=== PATIENT | female | born 1935 | race Caucasian/White ===

== ENCOUNTER 2023-12-10 18:00 | Emergency (ER) | payer MEDICARE, SELFPAY ==
[2023-12-10 18:05] VITALS: BP 176/79
--- NOTE | 2023-12-10 20:55 | ED.GENMED ---
History of Present Illness
General
Chief Complaint: Skin Surface Trauma
Source: family
Exam Limitations: dementia
Time Seen by Provider: 12/10/23 19:52
Nursing documentation reviewed up to this point in time: agreed with
Travel History
Have you had any contact with someone who has COVID-19?: No
Do you have any symptoms of coronavirus? Fever > 100 degrees, chills, cough, shortness of breath, sore throat, loss of taste or smell, muscle aches, or headache?: No
History of Present Illness
History of Present Illness:
pt is a 88 y/o F with h/o dementia, HTN, aortic stenosis
from [place]
witnessed fall when she was walking without walker and went to turn around and her feet got tangled up and she fell forward hitting her face o nthe ground
no LOC, vomitng
no change in mental status
but pt's upper dentures broke and she ahs a laceration in her mouth and through to above her upper lip
had a nosebleed that is controlled
no other known complaints
brought here by daughter
tetanus unknown.
Past History
Past History
ED Past Medical History: Asthma, Hypercholesterolemia, Hypothyroidism, Psychiatric (anxiety/depression), Other (Pancreatic lesion) and Other
ED Past Surgical History: Gynecological (Hysterectomy) and Orthopedic (Left total knee)
Patient has exhibited threatening behavior?: No
PSI?: No
Social History
Tobacco: Former smoker
Alcohol: None
Drug: None
Personal:
Living: assisted living
Family History
Family History: Other (Mother with stroke father with angina and Alzheimer's)
Review of Systems
Review of Systems
Allergies reviewed?: Yes
All Other Systems: Not applicable
Phy Exam
Physical Exam
Physical Exam:
GENERAL: Alert , in no apparent distress
HEAD: NCAT
FACE:skin above upper lip laceration 1 cm
NECK: no midline tenderness, active ROM intact, no paraspinal muscle tenderness;
EYE: pupils equal and reactive, EOMs intact.
ENT: o/p clr, mmm. no hemotympanum
no septal hematoma
upper gingiva contusion no obvious laceration
upper lip laceration buccal mucosa, small 1 cm
no lower lip laceration
lower dentures mobile, removed;
CARDIAC: Regular rate and rhythm, no edema
LUNGS: Clear breath sounds bilaterally, no acute respiratory distress, no wheezes/rales/rhonchi
ABDOMEN: Soft, without focal tenderness, no r/g, no cvat
NEUROLOGICAL: Alert and oriented, no focal neuro deficits, CN intact, 5/5 strength, sensation intact
SKIN: Warm and dry, bruised on pt's face and right knee
MUSCULOSKELETAL: No edema, well perfused.
full rom of hips and knees.
PSYCH: Normal and appropriate interaction.
Course
Orders/Labs/Results
Orders:
Orders
12/10/23 18:54
CT Facial Bones W/o Iv Contras Urgent
Comment:
Reason For Exam: s/p fall onto face
CT Head W/o Iv Contrast Urgent
Comment:
Reason For Exam: s/p fall onto face
12/10/23 20:54
Tetanus/Diphth/Acelpertussis [Adacel] 0.5 ml IM .ONCE ONE
Vital Signs
Initial and Last Documented VS:
Initial Vital Signs
Temp Pulse Resp BP Pulse Ox
98.4 F 81 16 176/79 98
12/10/23 18:05 12/10/23 18:05 12/10/23 18:05 12/10/23 18:05 12/10/23 18:05
Last Documented Vital Signs
Temp Pulse Resp BP Pulse Ox
98.4 F 85 16 162/81 99
12/10/23 18:05 12/10/23 21:41 12/10/23 18:05 12/10/23 21:41 12/10/23 21:41
Procedures
Laceration Closure
Face:
Status of Wound: clean
Size of Wound in cm: 1
Description of Wound Edges: ragged
Preparation: cleaned with saline
Anesthesia: 1% Lidocaine with epi
Revision/Debridement: minor revision
Wound exploration: explored to base- no FB
Type of Closure: single layer closure
Skin Closure Material: 6-0 nylon
Number of sutures: 4
MDM/Problems Addressed
Differential Diagnosis Includes:
facial fracture, head injruy, facial laceration, contusion
MDM/Problems Addressed:
88-year-old female with a history of dementia from custodial presents after witnessed fall forward onto her face today. She had no loss of consciousness, she is not anticoagulated. She has a facial laceration above her lip from her dentures
cutting her inside her mouth through to her outside face. Patient has dentures in the upper area are no longer in because they are fractured. She has intact lower dentures which were removed by me to evaluate her mouth. Patient has some facial
swelling below her nose above her lip but is not tender. She does have a contusion to her gingiva in the upper left side and an irregular shaped nongaping laceration measuring about 1 cm in her mouth and the buccal mucosa, the outer lip lacerations
about 1 cm, ragged and required sutures. It was irrigated and anesthetized and sutured with four 6-0 nylon sutures. Patient had no rebleeding. Her head and facial bone CT were negative for injuries. Patient will be discharged with her daughter
who will take her home, tetanus was updated
*Critical Care Note
Total Time (30-74mins, 75-104mins- exclusive of procedures): Not Applicable
ED Attending Note
-
Portions of this chart may have been created with voice recognition software.� Occasional wrong word or��sound alike� substitutions may have occurred due to the inherent limitations of voice recognition software.
Discharge Plan
Departure
Patient Disposition: Home (Routine Discharge)
Date of Disposition: 12/10/23
Time of Disposition: 21:38
Patient with high blood pressure during this ER visit?: Yes
Condition: Fair
Covid-19: Not Applicable
Discharge Problem:
Laceration of lip, Fall, Contusion of face
Instructions: Laceration Repair With Stitches (DC), Mouth and dental injuries in adults, BLOOD PRESSURE
Prescriptions:
No Action
clonazepam 0.5 MG tablet
0.5 mg PO BID
citalopram 20 MG tablet
20 mg PO DAILY
multivitamin with folic acid [Tab-A-Mellissa] 1 TABLET tablet
1 tab PO DAILY
methenamine hippurate 1 GRAM tablet
1 g PO DAILY
Hold Instructions: Resume on 04/25/23.
furosemide 20 MG tablet
20 mg PO DAILY
levothyroxine 112 MCG tablet
112 mcg PO DAILY AT 0700
ferrous sulfate
325 mg PO DAILY
cyanocobalamin (vitamin B-12)
1,000 mcg PO DAILY
Sudafed 12 Hour
120 mg PO DAILY PRN (Reason: Nasal Congestion)
Flonase Allergy Relief
1 spray intranasal DAILY
Vitamin D3
125 mcg PO DIRECTED
Rx Instructions:
daily x 6 days on and 1 day off
buspirone 5 mg Tablet
5 mg PO BID
lidocaine [Aspercreme (lidocaine)] 4 % Adhesive Patch,Medicated
1 patch TOPICAL DAILY
acetaminophen 650 mg Tablet
650 mg PO Q6H PRN (Reason: pain/temp)
amoxicillin 500 mg Tablet
2,000 mg PO DAILY PRN (Reason: prophylaxis prior to dental appointment)
famotidine 20 mg Tablet
20 mg PO DAILY
Referrals:
Lo Tamayo MD [Family Provider] - Follow up in 5-7 days
Activity Restrictions/Additional Instructions:
The CAT scan showed no fractures in the face and no head injury. She has some bruising and a lip laceration. The inner lip laceration will heal on its own. It can be washed out after she eats. She will need to see a dentist regarding her
dentures and her bruising to her mouth.
The skin outside was closed with stitches. Keep the area clean and dry for 5 to 7 days, wash it twice a day. Then follow-up with the family doctor for stitches removal in 5 to 7 days. She was given a tetanus shot today. Give Tylenol as needed
for pain. Watch for any signs of infection and return
Interventions
Interventions:
*Risk Screen - Suicide Last Done: 12/10/23 18:05
*General Assessment Last Done: 12/10/23 18:05
*Neglect/Abuse Screening Last Done: 12/10/23 18:05
ED- Fall Risk Assessment Last Done: 12/10/23 18:15
*ED COVID-19 Vaccine History Last Done: 12/10/23 18:05
*Nursing Disposition Last Done: 12/10/23 22:03
ED-Skin Assessment Last Done: 12/10/23 18:15
Discharge Date and Time
Discharge Date/Time: 12/10/23 22:04
[2023-12-10 21:41] VITALS: BP 162/81
[2023-12-10] MEDS: ADACEL 0.5 ML IM (21:45)
== END 2023-12-10 22:04 | disposition home or self-care (01) ==
LOC: EMR 18:00
PROVIDERS: EMERGENCY PHYSICIAN Emergency Medicine; FAMILY PHYSICIAN Internal Medicine
DX: S01.511A Laceration without foreign body of lip, initial encounter (principal); W19.XXXA Unspecified fall, initial encounter; E03.9 Hypothyroidism, unspecified; E78.00 Pure hypercholesterolemia, unspecified; F03.93 Unspecified dementia, unspecified severity, with mood disturbance; F03.94 Unspecified dementia, unspecified severity, with anxiety; F32.A Depression, unspecified; I10 Essential (primary) hypertension; I35.0 Nonrheumatic aortic (valve) stenosis; J45.909 Unspecified asthma, uncomplicated; R04.0 Epistaxis; Z82.3 Family history of stroke; Z87.891 Personal history of nicotine dependence
CPT/HCPCS: 99284; 12011; 90471; 70450; 70486; 90715

== ENCOUNTER 2023-12-21 10:43 | Emergency (ER) | payer MEDICARE, SELFPAY ==
[2023-12-21 10:43] VITALS: BMI 24.6
[2023-12-21 10:52] VITALS: BP 113/55
[2023-12-21 11:13] LABS: % Eosinophils 2.5 % (0-6); % Immature Granulocytes 0.2 % (0-0.5); % Lymphocytes 36.8 % (20.5-51.1); % Monocytes 10.6 % (1.7-9.3); % Neutrophils 48.9 % (42.2-75.2); Absolute Basophils 0.1 10^3/uL (0-0.2); Absolute Eosinophils 0.2 10^3/uL (0-0.7); Absolute Lymphocytes 2.3 10^3/uL (1.2-3.4); Absolute Monocytes 0.7 10^3/uL (0.1-0.6); Hematocrit 30.8 % (37.0-47.0); Hemoglobin 9.8 g/dL (12.0-16.0); Mean Corp Hgb Conc. 31.8 g/dL (33.0-37.0); Mean Corpuscular Hgb 30.9 pg (27.0-31.0); Mean Corpuscular Volume 97.2 fL (81.0-99.0); Mean Platelet Volume 9.5 fL (7.4-10.4); Nucleated Red Blood Cells % 0 %; Platelet Count 261 10^3/uL (130-400); Red Blood Cell Count 3.17 10^6/uL (4.20-5.40); White Blood Cell Count 6.1 10^3/uL (4.8-10.8)
[2023-12-21 11:34] LABS: ALT (SGPT) 16 U/L (0-35); AST (SGOT) 24 U/L (14-36); Albumin 3.8 g/dl (3.5-5.0); Alkaline Phosphatase 76 U/L (38-126); Blood Urea Nitrogen 53 mg/dl (7-17); Calcium 8.8 mg/dl (8.4-10.2); Carbon Dioxide 25 mmol/L (22-30); Chloride 108 mmol/L (98-107); Glucose 81 mg/dl (70-99); Potassium 4.7 mmol/L (3.5-5.1); Sodium 138 mmol/L (135-145); Total Bilirubin 0.3 mg/dl (0.2-1.3); Total Protein 6.1 g/dl (6.3-8.2); eGFR 21.17
[2023-12-21 11:54] LABS: Troponin I 0.035 ng/ml
--- NOTE | 2023-12-21 12:21 | ED.GENMED ---
History of Present Illness
General
Chief Complaint: Chest Pain
Time Seen by Provider: 12/21/23 12:19
Travel History
Have you had any contact with someone who has COVID-19?: No
Do you have any symptoms of coronavirus? Fever > 100 degrees, chills, cough, shortness of breath, sore throat, loss of taste or smell, muscle aches, or headache?: No
History of Present Illness
History of Present Illness:
HPI: Patient presents with 3 days of chest pain which is reportedly not reproducible and antacids have not helped. She does have a history of dementia and comes in from [place] by private vehicle. She is somewhat of a limited historian but does
state that she still has ongoing chest discomfort.
EXAM:
GENERAL: Appears in no distress
HEENT: Moist oral mucosa
CARDIOVASCULAR: Regular rate and rhythm, systolic murmur right upper sternal border, there is tenderness at the xiphoid and when she leaned forward she clearly had increased pain
PULMONARY: No respiratory distress, breathing is nonlabored, equal and clear breath sounds
ABDOMEN: Soft and nontender with no peritoneal signs
NEUROLOGIC: The patient has evidence of dementia, not oriented to month, however she knows that she is at [facility], strength is equal in all extremities
EXTREMITIES: Moves all extremities equally, no tenderness, no edema
PYSCHIATRIC: Limited historian, poor insight and judgment
ED COURSE:
1:15 PM: I initially evaluated patient
NUMBER AND COMPLEXITY OF PROBLEMS ADDRESSED AT THE ENCOUNTER
� Chronic conditions affecting care: Dementia, aortic stenosis, high blood pressure, Crohn's/colitis, renal insufficiency, iron deficiency anemia, hypothyroidism
� Acute Exacerbation and/or Progression of Chronic Illness: This is an acute problem
� Differential Diagnosis includes: Gastritis, ACS, musculoskeletal chest wall pain
AMOUNT AND/OR COMPLEXITY OF DATA TO BE REVIEWED AND ANALYZED
� I performed an independent evaluation of and my interpretation is:
EKG: Sinus 75, normal axis, no acute ST abnormality
CT:
X-rays: Chest x-ray shows no acute abnormality
Laboratory Studies: Troponin slightly elevated 0.035, creatinine is now worse at 2.2 but she does have baseline renal insufficiency last year creatinine was 1.3. Repeat troponin down to 0.027.
Other:
� Review of other/old records: Troponin on 05/17/2022 was 0.025
� Clinical information was obtained by an independent historian: I spoke to the daughter at bedside
� Prescriptions/Medications Considered but not given:
� Further testing considered but not performed:
RISK OF COMPLICATIONS AND/OR MORBIDITY OR MORTALITY OF PATIENT MANAGEMENT
� Social determinants of health affecting care: Currently living at a memory care unit at [facility].
� Discussion with other providers: I notify Dr. Ryan of the patient's visit to the ED
� Escalation of care including admission/observation vs risk of discharge considered: Initial troponin borderline elevated with normal EKG. She does have reproducible/positional findings on exam. Daughter states she has never
been to a senior oracle developer. The patient appears very comfortable on reassessment at 1:50 PM and daughter notes that the patient's pain occurs when she changes position in bed. Strongly suspect more of a musculoskeletal etiology of the chest wall.
Past History
Past History
ED Past Medical History: Asthma, Hypercholesterolemia, Hypothyroidism, Psychiatric (anxiety/depression), Other (Pancreatic lesion) and Other
ED Past Surgical History: Gynecological (Hysterectomy) and Orthopedic (Left total knee)
Patient has exhibited threatening behavior?: No
PSI?: No
Social History
Tobacco: Former smoker
Alcohol: None
Drug: None
Personal:
Living: assisted living
Family History
Family History: Other (Mother with stroke father with angina and Alzheimer's)
Phy Exam
Physical Exam
Physical Exam:
See HPI
Scores
Heart Score for Chest Pain Patients
STEMI patient?: Not applicable
Course
Orders/Labs/Results
Orders:
Orders
12/21/23 10:56
Electrocardiogram (*1) Urgent
Reason for Study: Chest Pain
EKG- Treatment ONCE
12/21/23 11:06
Complete Blood Count/With Diff Urgent
Comprehensive Metabolic Panel Urgent
Lipase Urgent
Troponin I Urgent
12/21/23 12:28
Famotidine [Pepcid] 20 mg IV NOW STA
12/21/23 12:29
Add On- LAB Urgent
Tests Added?: lipase
CR Chest - 2 Views Urgent
Comment:
Reason For Exam: cp
12/21/23 13:05
Troponin I Urgent
12/21/23 14:13
Acetaminophen [Tylenol] 650 mg PO NOW STA
Abnormal Lab Results
12/21/23
11:06
RBC 3.17 L 10^6/uL
(4.20-5.40)
Hgb 9.8 L g/dL
(12.0-16.0)
Hct 30.8 L %
(37.0-47.0)
MCHC 31.8 L g/dL
(33.0-37.0)
Absolute Monos (auto) 0.7 H 10^3/uL
(0.1-0.6)
Monocytes % 10.6 H %
(1.7-9.3)
Chloride 108 H mmol/L
(98-107)
BUN 53 H mg/dl
(7-17)
Creatinine 2.2 H mg/dL
(0.6-1.0)
Troponin I 0.035 H* ng/ml
Total Protein 6.1 L g/dl
(6.3-8.2)
12/21/23 11:06
12/21/23 11:06
Vital Signs
Initial and Last Documented VS:
Initial Vital Signs
Temp Pulse Resp BP Pulse Ox
97.8 F 78 13 113/55 98
12/21/23 10:52 12/21/23 10:52 12/21/23 10:52 12/21/23 10:52 12/21/23 10:52
Last Documented Vital Signs
Temp Pulse Resp BP Pulse Ox
97.8 F 70 13 134/63 99
12/21/23 10:52 12/21/23 13:45 12/21/23 13:45 12/21/23 13:43 12/21/23 13:45
*Critical Care Note
Total Time (30-74mins, 75-104mins- exclusive of procedures): Not Applicable
ED Attending Note
-
Portions of this chart may have been created with voice recognition software.� Occasional wrong word or��sound alike� substitutions may have occurred due to the inherent limitations of voice recognition software.
Discharge Plan
Departure
Patient Disposition: Home (Routine Discharge)
Date of Disposition: 12/21/23
Time of Disposition: 14:11
Patient with high blood pressure during this ER visit?: Yes
Discharge Problem:
Chest pain
Instructions: Chest Pain CBC Follow Up
Prescriptions:
No Action
clonazepam 0.5 MG tablet
0.25 mg PO Q6HPRN PRN (Reason: anxiety)
citalopram 20 MG tablet
20 mg PO DAILY
furosemide 20 MG tablet
20 mg PO DAILY
levothyroxine 112 MCG tablet
112 mcg PO DAILY
lidocaine [Aspercreme (lidocaine)] 4 % Adhesive Patch,Medicated
1 patch TOPICAL DAILY
amoxicillin 500 mg Tablet
2,000 mg PO DAILY PRN (Reason: prophylaxis prior to dental appointment)
famotidine 20 mg Tablet
20 mg PO DAILY
multivitamin [Daily-Mellissa] Tablet
1 tab PO DAILY
cyanocobalamin (vitamin B-12) 1,000 mcg Tablet Extended Release
1,000 mcg PO DAILY
acetaminophen [Tylenol] 325 mg Tablet
650 mg PO Q6H PRN (Reason: mild pain/temp)
clonazepam 0.5 mg Tablet
0.5 mg PO HS
pseudoephedrine HCl [Sudafed 12 Hour] 120 mg Tablet Extended Release
120 mg PO DAILYPRN PRN (Reason: nasal congestion)
methenamine hippurate 1 gram Tablet
1 g PO DAILY
ferrous sulfate 325 mg (65 mg iron) Tablet
325 mg PO DAILY
ibuprofen 400 mg Tablet
400 mg PO Q8H PRN (Reason: mild pain)
buspirone 7.5 mg Tablet
7.5 mg PO TID
fluticasone propionate [Flonase Allergy Relief] 50 mcg/actuation [place],Suspension
1 spray INTRANASAL DAILY
cholecalciferol (vitamin D3) 125 mcg (5,000 unit) Tablet
250 mcg PO SUMOWETHFRSA
Referrals:
Lo Tamayo MD [Family Provider] -
Tyree Ryan MD [Active] - Follow up in 2-3 days
Activity Restrictions/Additional Instructions:
I did briefly communicate with Dr. Ryan, one of the senior oracle developer�please follow-up with them. Return here if worse.
Interventions
Interventions:
*Risk Screen - Suicide Last Done: 12/21/23 12:27
*General Assessment Last Done: 12/21/23 10:53
*Neglect/Abuse Screening Last Done: 12/21/23 10:53
ED- Fall Risk Assessment Last Done: 12/21/23 12:27
ED- Cardiac Assessment Last Done: 12/21/23 12:27
[2023-12-21 12:23] VITALS: BP 114/51
[2023-12-21] MEDS: PEPCID 20 MG IV (12:59)
[2023-12-21 13:36] LABS: Lipase 109 U/L (23-300)
[2023-12-21 13:37] LABS: Troponin I 0.027 ng/ml
[2023-12-21 13:43] VITALS: BP 134/63
[2023-12-21] MEDS: TYLENOL 650 MG PO (14:25)
== END 2023-12-21 14:41 | disposition home or self-care (01) ==
LOC: EMR 10:43
PROVIDERS: Student in an Organized Health Care Education/Training Program; EMERGENCY PHYSICIAN Emergency Medicine; FAMILY PHYSICIAN Internal Medicine
DX: R07.89 Other chest pain (principal); I10 Essential (primary) hypertension; Z87.891 Personal history of nicotine dependence
CPT/HCPCS: 99285; 96374; 71046; 80053; 83690; 84484; 85025; 93005

== ENCOUNTER 2024-05-03 08:51 | Inpatient (IN) | payer MEDICARE, SELFPAY ==
[2024-05-01 19:57] LABS: Urine Albumin Trace (Neg - Trace); Urine Bilirubin Negative (Negative); Urine Character Clear (Clear); Urine Color Yellow; Urine Glucose Negative (Negative); Urine Ketone Negative (Negative); Urine Leukocyte 2+ (Negative); Urine Nitrite Positive (Negative); Urine Occult Blood Trace (Negative); Urine Urobilinogen Negative (Neg - 1+)
[2024-05-01 19:58] LABS: % Basophils 0.6 % (0-2); % Eosinophils 1.6 % (0-6); % Immature Granulocytes 0.2 % (0-0.5); % Lymphocytes 30.8 % (20.5-51.1); % Monocytes 12.1 % (1.7-9.3); % Neutrophils 54.7 % (42.2-75.2); Absolute Basophils 0.1 10^3/uL (0-0.2); Absolute Eosinophils 0.1 10^3/uL (0-0.7); Absolute Lymphocytes 2.7 10^3/uL (1.2-3.4); Absolute Monocytes 1.1 10^3/uL (0.1-0.6); Absolute Neutrophils 4.8 10^3/uL (1.4-6.5); Hematocrit 34.2 % (37.0-47.0); Hemoglobin 11.4 g/dL (12.0-16.0); Mean Corp Hgb Conc. 33.3 g/dL (33.0-37.0); Mean Corpuscular Hgb 31.2 pg (27.0-31.0); Mean Corpuscular Volume 93.7 fL (81.0-99.0); Mean Platelet Volume 10.2 fL (7.4-10.4); Nucleated Red Blood Cells % 0 %; Platelet Count 252 10^3/uL (130-400); Red Blood Cell Count 3.65 10^6/uL (4.20-5.40); Red Cell Dist. Width 12.9 % (11.5-14.5); White Blood Cell Count 8.7 10^3/uL (4.8-10.8)
[2024-05-01 20:00] VITALS: BP 133/61
--- NOTE | 2024-05-01 20:05 | ED.GENMED ---
History of Present Illness
General
Chief Complaint: Change in Mental Status
Source: patient
Time Seen by Provider: 05/01/24 19:58
Nursing documentation reviewed up to this point in time: agreed with
History of Present Illness
History of Present Illness:
Pleasantly demented 88-year-old female from [facility] dementia care presents with the possibility of new left-sided weakness. Family states that patient is at baseline and did not notice any weakness. Patient unable to add to the
story.
Spoke with daughter Calista who is on her way into the hospital
Past History
Past History
ED Past Medical History: Asthma, Hypercholesterolemia, Hypothyroidism, Psychiatric (anxiety/depression), Other (Pancreatic lesion) and Other
ED Past Surgical History: Gynecological (Hysterectomy) and Orthopedic (Left total knee)
Patient has exhibited threatening behavior?: No
PSI?: No
Social History
Tobacco: Former smoker
Alcohol: None
Drug: None
Personal:
Living: assisted living
Family History
Family History: Other (Mother with stroke father with angina and Alzheimer's)
Review of Systems
Review of Systems
Allergies reviewed?: Yes
Unable to obtain full review of systems at this time due to: dementia
Other source history: family and ambulance crew
Phy Exam
General Physical Exam
General Presentation: no apparent distress
General age: appears older than age
General Habitus: debilitated, elderly and frail
General Mental: usual mental status
General Hydration: appears well hydrated
Course
Orders/Labs/Results
Orders:
Orders
05/01/24 19:40
Electrocardiogram (*1) Urgent
Reason for Study: Chest Pain
05/01/24 19:41
EKG- Treatment ONCE
05/01/24 19:50
Complete Blood Count/With Diff Urgent
Comprehensive Metabolic Panel Urgent
NT-proBNP Urgent
Urinalysis Reflex To Culture Urgent
Date Specimen was Collected: 05/01/24
Time Specimen was Collected: 19:41
Urine Microscopic Reflex Cult Urgent
Urine Culture Urgent
SURYA Source: U
Specimen Description:
Date Specimen was Collected: 05/01/24
Time Specimen was Collected: 19:41
05/01/24 20:21
CT Head W/o Iv Contrast Urgent
Comment:
Reason For Exam: Change in ms
05/01/24 20:30
0.9% Sodium Chloride 1000 ml [Nss] 1,000 ml IV BOLUS
05/01/24 21:54
Cefepime HCl [Maxipime] 2,000 mg IV NOW STA
Abnormal Lab Results
05/01/24
19:50
RBC 3.65 L 10^6/uL
(4.20-5.40)
Hgb 11.4 L g/dL
(12.0-16.0)
Hct 34.2 L %
(37.0-47.0)
MCH 31.2 H pg
(27.0-31.0)
Absolute Monos (auto) 1.1 H 10^3/uL
(0.1-0.6)
Monocytes % 12.1 H %
(1.7-9.3)
BUN 54 H mg/dl
(7-17)
Creatinine 2.9 H mg/dL
(0.6-1.0)
Glucose 103 H mg/dl
(70-99)
AST 43 H U/L
(14-36)
Ur Occult Blood Reflex Trace A
(Negative)
Urine Nitrite (Reflex) Positive A
(Negative)
Leukocyte Esterase Rfl 2+ A
(Negative)
Urine WBC (Reflex) 30-40 A /HPF
(0-5)
Urine Bacteria (Reflex) Many A
(Negative)
05/01/24 19:50
05/01/24 19:50
Vital Signs
Initial and Last Documented VS:
Initial Vital Signs
Resp
0
05/01/24 19:40
Last Documented Vital Signs
Pulse Resp BP Pulse Ox
82 12 108/89 99
05/01/24 22:45 05/01/24 22:45 05/01/24 22:09 05/01/24 22:45
*Critical Care Note
Total Time (30-74mins, 75-104mins- exclusive of procedures): Not Applicable
Update Note
Update Note:
05/01/2024 2155 PM: Patient unable to tolerate liquids at all. She refuses to drink. She is not continually responding to verbal stimuli. Family who is present at the bedside states that this is a departure from her baseline.
ED Attending Note
-
Portions of this chart may have been created with voice recognition software.� Occasional wrong word or��sound alike� substitutions may have occurred due to the inherent limitations of voice recognition software.
Discharge Plan
Departure
Patient Disposition: Admit
Date of Disposition: 05/01/24
Time of Disposition: 22:00
Admit to: Med/Surg
Presentation/result/management discussed w/ accepting MD/DO: Hospitalist
Discharge Problem:
Urinary tract infection, Dementia, Acute alteration in mental status, Comfort measures only status
Prescriptions:
No Action
clonazepam 0.5 MG tablet
0.25 mg PO Q6HPRN PRN (Reason: anxiety)
citalopram 20 MG tablet
20 mg PO DAILY
furosemide 20 MG tablet
20 mg PO DAILY
levothyroxine 112 MCG tablet
112 mcg PO DAILY
famotidine 20 mg Tablet
20 mg PO DAILY
multivitamin [Daily-Mellissa] Tablet
1 tab PO DAILY
cyanocobalamin (vitamin B-12) 1,000 mcg Tablet Extended Release
1,000 mcg PO DAILY
acetaminophen [Tylenol] 325 mg Tablet
650 mg PO Q6H PRN (Reason: mild pain/temp)
clonazepam 0.5 mg Tablet
0.5 mg PO HS
methenamine hippurate 1 gram Tablet
1 g PO DAILY
buspirone 7.5 mg Tablet
7.5 mg PO TID
fluticasone propionate [Flonase Allergy Relief] 50 mcg/actuation [place],Suspension
1 spray INTRANASAL DAILY
cholecalciferol (vitamin D3) 125 mcg (5,000 unit) Tablet
250 mcg PO SUMOWETHFRSA
Referrals:
Lo Tamayo MD [Family Provider] -
Interventions
Interventions:
*Risk Screen - Suicide Last Done: 05/01/24 19:35
*General Assessment Last Done: 05/01/24 19:35
*Neglect/Abuse Screening Last Done: 05/01/24 19:35
ED- Neurological Assessment Last Done: 05/01/24 20:15
ED Swallowing Screen Last Done: 05/01/24 20:15
Discharge Date and Time
Print Language: MAC[place]ON[place]
[2024-05-01 20:12] LABS: Urine Mucus Few
[2024-05-01 20:13] LABS: ALT (SGPT) 20 U/L (0-35); AST (SGOT) 43 U/L (14-36); Albumin 4.2 g/dl (3.5-5.0); Alkaline Phosphatase 81 U/L (38-126); Blood Urea Nitrogen 54 mg/dl (7-17); Carbon Dioxide 29 mmol/L (22-30); Chloride 103 mmol/L (98-107); Glucose 103 mg/dl (70-99); Potassium 4.6 mmol/L (3.5-5.1); Sodium 141 mmol/L (135-145); Total Bilirubin 0.6 mg/dl (0.2-1.3); Total Protein 6.5 g/dl (6.3-8.2)
[2024-05-01 20:15] LABS: Urine Bacteria Many (Negative)
[2024-05-01 20:16] LABS: Urine Red Blood Cell 0-2 /HPF (0-2); Urine White Cell 30-40 /HPF (0-5)
[2024-05-01 20:22] LABS: NT-proBNP 2270 pg/ml
[2024-05-01] MEDS: NSS 1000 IV (20:45)
[2024-05-01 21:00] VITALS: BP 125/72
[2024-05-01 21:49] VITALS: BP 135/61
[2024-05-01 22:00] VITALS: BP 86/33
[2024-05-01] MEDS: MAXIPIME 2000 MG IV (22:08)
[2024-05-01 22:09] VITALS: BP 108/89
--- NOTE | 2024-05-01 22:45 | HPS.HSE ---
Family Physician
-
Family Physician: Lo Tamayo
Chief Complaint
-
AMS
History of Present Illness
The patient is an 88 yo woman with PMH significant for dementia, recurrent UTI, CKD stage 3, asthma, HLD, hypothyroidism, anxiety/depression, Collagenous Colitis, who presents to the ED due to worsening mental status with underlying dementia,
concern for UTI. She was close to baseline mentation yesterday, she typically remembers her daughter who comes to visit her daily, and ambulates with a walker. She has been acting 'funny' and not herself since yesterday, with noted more off balance
at [place], and worsening of mental status. She has not produced much urine since being in the ED. She is non-verbal in the ED, whereas she typically can talk 'sometimes jibberish' as her baseline. UA positive for UTI in ED. She is unable to tolerate
liquids and is refusing the drink. She is more altered then baseline per family, not talking, somnolent, mouth open, not eating. No fevers, though she has some rigors in ED, no known CP, no SOB, no n/v/d, no known dysuria, no rash/skin lesions, no
bleeding.
Medical History
Past Medical History
Past Medical History: Reports Other
Additional Past Medical History:
Senile Dementia with Behavioral Disturbance
Generalized Anxiety
CKD III
Hypothyroidism
Collagenous Colitis
Recurrent UTIs
Past Surgical History: Reports Other
Additional Past Surgical History:
Bilateral TKA
Right Rotator Cuff Repair
Partial Hysterectomy
Social History
Unable to obtain full social history at this time due to: Dementia
Family History
Family History: Unable to Obtain
Allergies / Home Medications
Allergies reflects when Allergies were last updated in [facility].
Home Medications with original date entered in [facility]
Allergy/Medication List:
Allergies
Allergy/AdvReac Type Severity Reaction Status Date / Time
ciprofloxacin [From Cipro] Allergy Nausea / Verified 05/01/24 19:35
Vomiting
clams Allergy Unknown Verified 05/01/24 19:35
melatonin Allergy Unknown Verified 05/01/24 19:35
loratadine [From Claritin] AdvReac Intermediate heart Verified 05/01/24 19:35
racing
Home Medications
citalopram 20 mg tablet 20 mg PO DAILY Mental Health/Anxiety 10/29/20
clonazepam 0.5 mg tablet 0.25 mg PO Q6HPRN PRN anxiety 10/29/20
furosemide 20 mg tablet 20 mg PO DAILY Fluid Retention/Swelling 09/11/21
levothyroxine 112 mcg tablet 112 mcg PO DAILY Thyroid 09/11/21
famotidine 20 mg tablet 20 mg PO DAILY 07/04/23
acetaminophen 325 mg tablet (Tylenol) 650 mg PO Q6H PRN mild pain/temp 12/21/23
buspirone 7.5 mg tablet 7.5 mg PO TID 12/21/23
cholecalciferol (vitamin D3) 125 mcg (5,000 unit) tablet 250 mcg PO SUMOWETHFRSA 12/21/23
clonazepam 0.5 mg tablet 0.5 mg PO HS 12/21/23
cyanocobalamin (vitamin B-12) 1,000 mcg tablet,extended release 1,000 mcg PO DAILY 12/21/23
fluticasone propionate 50 mcg/actuation nasal spray,suspension (Flonase Allergy Relief) 1 spray intranasal DAILY 12/21/23
methenamine hippurate 1 gram tablet 1 g PO DAILY 12/21/23
multivitamin (Daily-Mellissa tablet) 1 tab PO DAILY 12/21/23
Review of Systems
-
A 12 point ROS was completed and negative except as noted: Yes
Physical Exam
Vital Signs
Vital Signs
Pulse Resp BP Pulse Ox
86 12 135/61 99
05/01/24 21:49 05/01/24 21:49 05/01/24 21:49 05/01/24 21:49
Physical Exam
General: Appears Chronically Ill and Cachectic
HEENT: NormoCephalic and Anicteric
Respiratory: Clear
Cardiac: S1/S2 and Regular Rhythm
GI: Soft, Non Tender and Non Distended
Musculoskeletal: No Clubbing, No Cyanosis and No Edema
Skin: Warm and Dry
Neuro: Other (lethargic, somnolent, not answering questions)
Psych: Confused
Laboratory Results
-
05/01/24 19:50
05/01/24 19:50
Laboratory Results
Total Bilirubin 0.6 mg/dl (0.2-1.3) 05/01/24 19:50
AST 43 U/L (14-36) H 05/01/24 19:50
ALT 20 U/L (0-35) 05/01/24 19:50
Alkaline Phosphatase 81 U/L (38-126) 05/01/24 19:50
Data Reviewed
-
CT Scan: Report Reviewed by me (CT head no acute pathology)
Impression/Plan
-
IMPRESSION:
#Possible toxic metabolic encephalopathy from UTI causing AMS, history of recurrent UTI, AF, VSS
-CT head with stable small left dickinson radiata chronic infarct with encephalomalacia at the level of the body of the lateral ventricle.
-Stable tiny chronic lacunar infarct at the posterior margin of the right basal ganglia. Stable tiny right lentiform nucleus chronic lacunar infarct.
-No evidence to suggest acute large vascular territory transcortical infarct at this time.
-Continue with IV Rocephin, s/p dose of Cefepime in ED, await urine cultures
-Check TSH
#BEHZAD on CKD stage III, creatinine on 12/21/23 was 2.2. Likely volume depleted/pre-renal, Baseline unknown at this time, Creat 2.9 today
-continue IVF, avoid nephrotoxic agents, repeat BMP in am
-monitor i/o, daily weights
-Bladder scan and straight cath if needed
#Ambulatory dysfunction, worsening of ambulation/off balance since yesterday, possibly related to TME with underlying dementia
-CT head without acute stroke, , will reassess after treatment with IV abx and IVF
-PT eval pending clinical improvement, ordered
-Consider Neuro evaluation tomorrow pending overnight treatment
-check B-12 and folate
#Mild elevated LFT, abd soft, no tenderness on exam
-AST 43, all other LFTs wnl
-repeat CMP tomorrow, monitor for now
#Senile Dementia with Behavioral Disturbance
#Generalized Anxiety
#Hypothyroidism
#Collagenous Colitis
#Recurrent UTIs, most recent UTI sensitive to Rocephin (E. Coli)
DVT proph- Hep SQ BID
DNR/DNI
[2024-05-01 23:00] VITALS: BP 112/51
[2024-05-02] VITALS: BP 119/59
[2024-05-02 01:22] VITALS: BP 154/75; BMI 21.4
[2024-05-02] MEDS: VITAMIN D3 (cholecalciferol) PO (01:40)
[2024-05-02] MEDS: NSS 1000 IV (01:50)
--- NOTE | 2024-05-02 03:24 | PTCARENOTE ---
Pt received from ER aao x self only, denies pain,resting comfortably. Pt was a machine puller over. Pt unable to answer all questions.Pt placed on a bed alarm & fall precautions maintained. Unable to complete admission questions on pt.
[2024-05-02] MEDS: SYNTHROID PO (05:40)
[2024-05-02 05:55] VITALS: BMI 21.3
[2024-05-02 07:30] VITALS: BP 105/51
[2024-05-02] MEDS: CELEXA 20 MG PO (09:40)
[2024-05-02] MEDS: PEPCID 20 MG PO (09:40)
[2024-05-02] MEDS: BUSPAR 7.5 MG PO ×3 (09:40→21:47)
[2024-05-02] MEDS: VITAMIN B-12 1000 MCG PO (09:40)
[2024-05-02] MEDS: HIPREX 1 GRAM PO (09:40)
[2024-05-02] MEDS: THERAGRAN 1 TABLET PO (09:41)
[2024-05-02] MEDS: HEPARIN 5000 UNITS SC ×2 (09:50→20:25)
[2024-05-02 09:56] VITALS: BP 118/51; PULSE 77; O2SAT 96
[2024-05-02 10:18] LABS: ALT (SGPT) 17 U/L (0-35); AST (SGOT) 37 U/L (14-36); Albumin 3.2 g/dl (3.5-5.0); Alkaline Phosphatase 63 U/L (38-126); Blood Urea Nitrogen 47 mg/dl (7-17); Calcium 9.2 mg/dl (8.4-10.2); Carbon Dioxide 24 mmol/L (22-30); Chloride 112 mmol/L (98-107); Creatine Phosphokinase 581 U/L (30-135); Estimated Creatinine Clearance 19 ml/min; Glucose 79 mg/dl (70-99); Magnesium 2.2 mg/dl (1.6-2.3); Potassium 4.3 mmol/L (3.5-5.1); Sodium 142 mmol/L (135-145); Total Bilirubin 0.6 mg/dl (0.2-1.3); Total Protein 5.3 g/dl (6.3-8.2); eGFR 23.73
[2024-05-02 10:55] LABS: TSH 1.89 uIU/ml (0.47-4.68)
[2024-05-02 11:30] LABS: Folate > 20.0 ng/ml (2.76-20); Vitamin B12 > 1000 pg/ml (239-931)
[2024-05-02 12:27] LABS: % Basophils 0.7 % (0-2); % Eosinophils 1.5 % (0-6); % Immature Granulocytes 0.1 % (0-0.5); % Lymphocytes 36.8 % (20.5-51.1); % Monocytes 13.2 % (1.7-9.3); % Neutrophils 47.7 % (42.2-75.2); Absolute Basophils 0.1 10^3/uL (0-0.2); Absolute Eosinophils 0.1 10^3/uL (0-0.7); Absolute Lymphocytes 2.5 10^3/uL (1.2-3.4); Absolute Monocytes 0.9 10^3/uL (0.1-0.6); Absolute Neutrophils 3.2 10^3/uL (1.4-6.5); Hematocrit 29.1 % (37.0-47.0); Hemoglobin 9.7 g/dL (12.0-16.0); Mean Corp Hgb Conc. 33.3 g/dL (33.0-37.0); Mean Corpuscular Hgb 30.9 pg (27.0-31.0); Mean Corpuscular Volume 92.7 fL (81.0-99.0); Mean Platelet Volume 10.8 fL (7.4-10.4); Nucleated Red Blood Cells % 0 %; Platelet Count 217 10^3/uL (130-400); Red Blood Cell Count 3.14 10^6/uL (4.20-5.40); White Blood Cell Count 6.7 10^3/uL (4.8-10.8)
--- NOTE | 2024-05-02 12:54 | W.PN.HOSP.TC ---
Today's Communication/Plan
-
monitor vitals
see plan
Continue antibiotics
Follow urine culture
PT/OT
Monitor renal function
Assessment / Plan
Assessment / Plan
General: Appears Chronically Ill and Cachectic
HEENT: NormoCephalic and Anicteric
Respiratory: Clear
Cardiac: S1/S2 and Regular Rhythm
GI: Soft, Non Tender and Non Distended
Musculoskeletal: No Clubbing, No Cyanosis and No Edema
Skin: Warm and Dry
Neuro: AAOX1-2
Psych: Confused
Possible toxic metabolic encephalopathy from UTI causing AMS, history of recurrent UTI, AF, VSS
-CT head with stable small left dickinson radiata chronic infarct with encephalomalacia at the level of the body of the lateral ventricle.
-Stable tiny chronic lacunar infarct at the posterior margin of the right basal ganglia. Stable tiny right lentiform nucleus chronic lacunar infarct.
-No evidence to suggest acute large vascular territory transcortical infarct at this time.
-Continue with IV Rocephin, await urine cultures
- TSH wnl
#Renal insufficiency; CKD stage III, creatinine on 12/21/23 was 2.2. Likely volume depleted/pre-renal, Baseline unknown at this time, Creat 2.9 on admission
-continue IVF, avoid nephrotoxic agents
-monitor i/o, daily weights
-Bladder scan and straight cath if needed
#Ambulatory dysfunction, worsening of ambulation/off balance since yesterday, possibly related to TME with underlying dementia
-CT head without acute stroke, , will reassess after treatment with IV abx and IVF
-PT eval pending clinical improvement, ordered
#Mild elevated LFT, abd soft, no tenderness on exam
monitor CMP
#Senile Dementia with Behavioral Disturbance
#Generalized Anxiety
#Hypothyroidism
#Collagenous Colitis
#Recurrent UTIs, most recent UTI sensitive to Rocephin (E. Coli)
DVT proph- Hep SQ BID
DNR/DNI
Anticipated Discharge: 24 - 48 hours
Subjective/Interval History
-
Date of Service: May 02, 2024
denies pain
Objective Data
-
Labs:
Laboratory Results
05/02/24
09:00
WBC 6.7
Hgb 9.7 L
Hct 29.1 L
Plt Count 217
Sodium 142
Potassium 4.3
Chloride 112 H
Carbon Dioxide 24
BUN 47 H
Creatinine 2.0 H
Glucose 79
Calcium 9.2
Total Bilirubin 0.6
AST 37 H
ALT 17
Alkaline Phosphatase 63
Vital Signs:
Vital Signs
Temp Pulse Resp BP Pulse Ox
98 F 85 18 105/51 95
05/02/24 07:30 05/02/24 07:30 05/02/24 07:30 05/02/24 07:30 05/02/24 10:00
[2024-05-02 15:12] VITALS: BP 125/64
[2024-05-02] MEDS: KLONOPIN 0.5 MG PO (21:47)
[2024-05-02] MEDS: ROCEPHIN 1000 MG IV (21:48)
[2024-05-02] MEDS: STERILE WATER FOR INJECTION 10 ML IV (21:48)
[2024-05-02 23:39] VITALS: BP 130/67
[2024-05-03 05:17] LABS: % Basophils 0.7 % (0-2); % Eosinophils 2.1 % (0-6); % Immature Granulocytes 0.2 % (0-0.5); % Lymphocytes 43.7 % (20.5-51.1); % Monocytes 10.3 % (1.7-9.3); Absolute Eosinophils 0.1 10^3/uL (0-0.7); Absolute Lymphocytes 2.5 10^3/uL (1.2-3.4); Absolute Monocytes 0.6 10^3/uL (0.1-0.6); Absolute Neutrophils 2.5 10^3/uL (1.4-6.5); Hematocrit 30.3 % (37.0-47.0); Mean Corpuscular Hgb 31.3 pg (27.0-31.0); Mean Corpuscular Volume 94.7 fL (81.0-99.0); Mean Platelet Volume 10.4 fL (7.4-10.4); Nucleated Red Blood Cells % 0 %; Platelet Count 213 10^3/uL (130-400); Red Cell Dist. Width 12.6 % (11.5-14.5); White Blood Cell Count 5.7 10^3/uL (4.8-10.8)
[2024-05-03] MEDS: SYNTHROID PO (05:30)
[2024-05-03 05:47] LABS: ALT (SGPT) 18 U/L (0-35); AST (SGOT) 37 U/L (14-36); Albumin 3.2 g/dl (3.5-5.0); Alkaline Phosphatase 69 U/L (38-126); Blood Urea Nitrogen 40 mg/dl (7-17); Calcium 9.5 mg/dl (8.4-10.2); Carbon Dioxide 27 mmol/L (22-30); Chloride 109 mmol/L (98-107); Estimated Creatinine Clearance 23 ml/min; Glucose 85 mg/dl (70-99); Potassium 4.1 mmol/L (3.5-5.1); Sodium 141 mmol/L (135-145); Total Bilirubin 0.4 mg/dl (0.2-1.3); Total Protein 5.4 g/dl (6.3-8.2); eGFR 31.02
[2024-05-03 06:00] VITALS: BMI 21.3
[2024-05-03 07:25] VITALS: BP 137/75
[2024-05-03] MEDS: BUSPAR 7.5 MG PO ×3 (09:28→21:32)
[2024-05-03] MEDS: VITAMIN B-12 1000 MCG PO (09:28)
[2024-05-03] MEDS: HEPARIN 5000 UNITS SC ×2 (09:29→21:34)
[2024-05-03] MEDS: THERAGRAN 1 TABLET PO (09:29)
[2024-05-03] MEDS: HIPREX 1 GRAM PO (09:29)
[2024-05-03] MEDS: CELEXA 20 MG PO (09:30)
--- NOTE | 2024-05-03 12:39 | W.PN.HOSP.TC ---
Addendum entered and electronically signed by Nelson Burrell MD 05/03/24 12:48:
Discussed with daughter over the phone
Original Note:
Today's Communication/Plan
-
Monitor vital signs and see plan
Start baby aspirin
Continue with antibiotics
Follow urine culture
Monitor mental status
PT/OT
Assessment / Plan
Assessment / Plan
General: Appears Chronically Ill and Cachectic
HEENT: NormoCephalic and Anicteric
Respiratory: Clear
Cardiac: S1/S2 and Regular Rhythm
GI: Soft, Non Tender and Non Distended
Musculoskeletal: No Edema
Skin: Warm and Dry
Neuro: AAOX1-2
Psych: Confused
Possible toxic metabolic encephalopathy from UTI causing AMS, history of recurrent UTI, AF, VSS
-CT head with stable small left dickinson radiata chronic infarct with encephalomalacia at the level of the body of the lateral ventricle.
-Stable tiny chronic lacunar infarct at the posterior margin of the right basal ganglia. Stable tiny right lentiform nucleus chronic lacunar infarct. Spoke with daughter and she does not recall any previous CVA. Start baby aspirin
-No evidence to suggest acute large vascular territory transcortical infarct at this time.
-Continue with IV Rocephin, await urine cultures
- TSH wnl
#Renal insufficiency; CKD stage III, creatinine on 12/21/23 was 2.2. Likely volume depleted/pre-renal, Baseline unknown at this time, Creat 2.9 on admission
-continue IVF, avoid nephrotoxic agents
-monitor i/o, daily weights
-Bladder scan and straight cath if needed
#Ambulatory dysfunction, worsening of ambulation/off balance since yesterday, possibly related to TME with underlying dementia
-CT head without acute stroke, , will reassess after treatment with IV abx and IVF. Per daughter patient symptoms have been getting better. Patient currently does not seem increasingly confused
-PT eval rec SNF vs return to NH
#Mild elevated LFT, abd soft, no tenderness on exam
monitor CMP
#Senile Dementia with Behavioral Disturbance
#Generalized Anxiety
#Hypothyroidism
#Collagenous Colitis
#Recurrent UTIs, most recent UTI sensitive to Rocephin (E. Coli)
DVT proph- Hep SQ BID
DNR/DNI
Anticipated Discharge: 24 - 48 hours
Subjective/Interval History
-
Date of Service: May 03, 2024
denies pain
Objective Data
-
Labs:
Laboratory Results
05/03/24
04:50
WBC 5.7
Hgb 10.0 L
Hct 30.3 L
Plt Count 213
Sodium 141
Potassium 4.1
Chloride 109 H
Carbon Dioxide 27
BUN 40 H
Creatinine 1.6 H
Glucose 85
Calcium 9.5
Total Bilirubin 0.4
AST 37 H
ALT 18
Alkaline Phosphatase 69
Vital Signs:
Vital Signs
Temp Pulse Resp BP Pulse Ox
98.2 F 70 17 137/75 98
05/03/24 07:25 05/03/24 07:25 05/03/24 07:25 05/03/24 07:25 05/03/24 07:25
I&O
05/02/24 05/03/24 05/04/24
06:59 06:59 06:59
Intake Total 780 / 780
Balance 780 / 780
[2024-05-03] MEDS: LOW STRENGTH ASPIRIN 81 MG PO (15:12)
[2024-05-03 15:19] VITALS: BP 109/48
[2024-05-03] MEDS: KLONOPIN 0.5 MG PO (21:33)
[2024-05-03] MEDS: ROCEPHIN 1000 MG IV (21:33)
[2024-05-03] MEDS: STERILE WATER FOR INJECTION 10 ML IV (21:34)
[2024-05-03 23:52] VITALS: BP 130/64
--- NOTE | 2024-05-04 02:59 | DOWNTIME ---
There was a [facility] Client Piece Worker Downtime on 05/04/2024 from 0100 to 05/04/2024 at 0255. Downtime documentation of patient's care, including medication administrations, has been reconciled in the electronic record per guidelines. Refer to the
patient's paper chart under the miscellaneous tab to see printed paper medication records and downtime forms.
[2024-05-04] MEDS: SYNTHROID 112 MCG PO (06:21)
[2024-05-04] MEDS: VITAMIN D3 (cholecalciferol) 250 MCG PO (06:21)
[2024-05-04 07:25] VITALS: BP 144/76
[2024-05-04 07:34] LABS: ALT (SGPT) 18 U/L (0-35); AST (SGOT) 34 U/L (14-36); Albumin 3.5 g/dl (3.5-5.0); Alkaline Phosphatase 66 U/L (38-126); Blood Urea Nitrogen 35 mg/dl (7-17); Calcium 10.1 mg/dl (8.4-10.2); Carbon Dioxide 29 mmol/L (22-30); Chloride 107 mmol/L (98-107); Estimated Creatinine Clearance 29 ml/min; Glucose 94 mg/dl (70-99); Potassium 4.1 mmol/L (3.5-5.1); Sodium 140 mmol/L (135-145); Total Bilirubin 0.5 mg/dl (0.2-1.3); Total Protein 5.7 g/dl (6.3-8.2)
[2024-05-04 07:50] LABS: % Basophils 0.7 % (0-2); % Eosinophils 2.7 % (0-6); % Immature Granulocytes 0.3 % (0-0.5); % Lymphocytes 41.9 % (20.5-51.1); % Monocytes 10.2 % (1.7-9.3); % Neutrophils 44.2 % (42.2-75.2); Absolute Basophils 0.1 10^3/uL (0-0.2); Absolute Eosinophils 0.2 10^3/uL (0-0.7); Absolute Lymphocytes 2.9 10^3/uL (1.2-3.4); Absolute Monocytes 0.7 10^3/uL (0.1-0.6); Absolute Neutrophils 3.1 10^3/uL (1.4-6.5); Hemoglobin 11.1 g/dL (12.0-16.0); Mean Corp Hgb Conc. 32.6 g/dL (33.0-37.0); Mean Corpuscular Hgb 30.8 pg (27.0-31.0); Mean Corpuscular Volume 94.4 fL (81.0-99.0); Mean Platelet Volume 10.9 fL (7.4-10.4); Nucleated Red Blood Cells % 0 %; Platelet Count 245 10^3/uL (130-400); Red Cell Dist. Width 12.7 % (11.5-14.5)
[2024-05-04] MEDS: HEPARIN 5000 UNITS SC (09:26)
[2024-05-04] MEDS: THERAGRAN 1 TABLET PO (09:28)
[2024-05-04] MEDS: VITAMIN B-12 1000 MCG PO (09:28)
[2024-05-04] MEDS: HIPREX 1 GRAM PO (09:28)
[2024-05-04] MEDS: LOW STRENGTH ASPIRIN 81 MG PO (09:28)
[2024-05-04] MEDS: BUSPAR 7.5 MG PO ×2 (09:29→15:43)
[2024-05-04] MEDS: PEPCID 20 MG PO (09:29)
[2024-05-04] MEDS: CELEXA 20 MG PO (09:29)
--- NOTE | 2024-05-04 11:04 | PN.CDI ---
CDI
- -
CDI:
Physician Documentation Request
Admit Date: 05/03/24 08:51
Dear Doctor Indra,
Please review the following and provide your response in the progress notes.
Clinical Indicators:
Pt admitted for urinary tract infection, toxic metabolic encephalopathy, and Acute kidney injury
Documentation in the record on 05/01, H&P includes the diagnosis of BEHZAD and CKD. The following clinical information was noted in the record:
05/01 H&P: 'BEHZAD on CKD stage III, creatinine on 12/21/23 was 2.2. Likely volume depleted/pre-renal, Baseline unknown at this time, Creat 2.9 today
05/04 Progress Note: 'Renal insufficiency; CKD stage III, creatinine on 12/21/23 was 2.2. Likely volume depleted/pre-renal, Baseline unknown at this time, Creat 2.9 on admission-continue IVF, avoid nephrotoxic agents.'
Laboratory Tests
05/01/24 05/03/24 05/04/24
19:50 04:50 06:50
Creatinine 2.9 H 1.6 H 1.3 H
Bases on the above information and the clinical indicators in the record, please clarify in the Progress Notes which of the following most accurately represents the patient's renal status:
Acute kidney injury on CKD III
Renal Insufficiency Only
Other
Criteria for BEHZAD*
1 Increase in serum creatinine by > or = to 0.3 mg/dL (> or = to 26.5 micromol/L) within 48 hours, OR
2 Increase in serum creatinine to > or = to 1.5 times baseline, which is known or presumed to have occurred within 7 days, OR
3 Urine volume < 0.5 nL/kg/hour for six hours
Use of terms such as suspected, likely, concern for, or probable (associated with a specific diagnosis that is being evaluated, monitored, or treated as if it exists) are acceptable and can be coded in the inpatient setting, when documented at the
time of discharge.
Thank you,
Rachel Mitchell RN, BSN
CDI Specialist
Available via [facility] [employer]
Please use your independent medical judgment in providing your response.
*Source: Kidney Disease: Improving Global Outcomes (KDIGO) 2012
--- NOTE | 2024-05-04 11:14 | W.PN.HOSP.TC ---
Addendum entered and electronically signed by Nelson Burrell MD 05/05/24 14:35:
Acute kidney injury on chronic kidney disease stage IIIb-IV
Addendum entered and electronically signed by Nelson Burrell MD 05/04/24 12:06:
Patient's family has already signed paperwork for hospice to be started early next week. Will discharge patient to previous living facility
Time of discharge 38 minutes
Original Note:
Today's Communication/Plan
-
Monitor vital signs see plan
PT/OT evaluation
Monitor renal function
Daughter updated over the phone
change to PO abx
Assessment / Plan
Assessment / Plan
General: Appears Chronically Ill and Cachectic
HEENT: NormoCephalic and Anicteric
Respiratory: Clear
Cardiac: S1/S2 and Regular Rhythm
GI: Soft, Non Tender and Non Distended
Musculoskeletal: No Edema
Neuro: AAOX1-2
Psych: Confused
Possible toxic metabolic encephalopathy from UTI causing AMS, history of recurrent UTI, AF, VSS
-CT head with stable small left dickinson radiata chronic infarct with encephalomalacia at the level of the body of the lateral ventricle.
-Stable tiny chronic lacunar infarct at the posterior margin of the right basal ganglia. Stable tiny right lentiform nucleus chronic lacunar infarct. Spoke with daughter and she does not recall any previous CVA. Start baby aspirin
-No evidence to suggest acute large vascular territory transcortical infarct at this time.
urine cx with ecoli; change abx to PO
- TSH wnl
#Renal insufficiency; CKD stage III, creatinine on 12/21/23 was 2.2. Likely volume depleted/pre-renal, Baseline unknown at this time, Creat 2.9 on admission
cr now 1.3
avoid nephrotoxic agents
-monitor i/o, daily weights
-Bladder scan and straight cath if needed
#Ambulatory dysfunction, worsening of ambulation/off balance since yesterday, possibly related to TME with underlying dementia
-CT head without acute stroke. Per daughter patient symptoms have been getting better. Patient currently does not seem increasingly confused
-PT eval rec SNF vs return to NH. CM aware
#Mild elevated LFT, abd soft, no tenderness on exam
monitor CMP
#Senile Dementia with Behavioral Disturbance
#Generalized Anxiety
#Hypothyroidism
#Collagenous Colitis
#Recurrent UTIs, most recent UTI sensitive to Rocephin (E. Coli)
DVT proph- Hep SQ BID
DNR/DNI
Anticipated Discharge: Within 24 hours
Subjective/Interval History
-
Date of Service: May 04, 2024
denies pain
Objective Data
-
Labs:
Laboratory Results
05/04/24
06:50
WBC 7.0
Hgb 11.1 L
Hct 34.0 L
Plt Count 245
Sodium 140
Potassium 4.1
Chloride 107
Carbon Dioxide 29
BUN 35 H
Creatinine 1.3 H
Glucose 94
Calcium 10.1
Total Bilirubin 0.5
AST 34
ALT 18
Alkaline Phosphatase 66
Vital Signs:
Vital Signs
Temp Pulse Resp BP Pulse Ox
97.8 F 70 16 144/76 97
05/04/24 07:25 05/04/24 07:25 05/04/24 07:25 05/04/24 07:25 05/04/24 07:25
I&O
05/03/24 05/04/24 05/05/24
06:59 06:59 06:59
Intake Total 780 / 780 240 / 240
Balance 780 / 780 240 / 240
--- NOTE | 2024-05-04 12:11 | W.DCSUMMARY ---
Discharge Summary
Discharge Data
Date of Admission: 05/03/24
Date of Discharge: 05/04/24
-
Pending Results: No
Hospital Course
88-year-old female with past medical history of dementia with behavioral disturbance, generalized anxiety, hypothyroidism, collagenous colitis, recurrent UTIs came to the hospital with toxic metabolic encephalopathy which was likely thought was
secondary to urinary tract infection CT scan was done which showed chronic infarct. Given these findings patient was started on baby aspirin. Patient mental status continue to improve on antibiotics. Prior to discharge patient antibiotics was
changed to oral. She also had renal insufficiency on admission which over time continue to improve. Patient was also evaluated by physical therapy who recommended rehab versus memory care unit where patient currently resides. Given these findings
family decided patient to come back to memory care unit and per family plan is for patient to be transition to hospice next week. Since patient symptoms continue to improve, she was then discharged with instructions to follow-up with all her
physicians outpatient.
Discharge Plan
-
Patient Disposition: Other
Discharge Diagnosis/Procedures: Toxic metabolic encephalopathy secondary to urinary tract infection
Renal insufficiency
Chronic kidney disease
Ambulatory dysfunction
Dementia
Diet: As tolerated
Activity: With assistance and As tolerated
Driving Restrictions: No driving
Bathing Restrictions: None
Referrals:
Lo Tamayo MD [Family Provider] - in less than 1 week
Prescriptions:
New
aspirin 81 mg Tablet,Chewable
81 mg PO DAILY Qty: 0 0RF
cefdinir 300 mg Capsule
300 mg PO Q12 Qty: 6 0RF
Continued
clonazepam 0.5 MG tablet
0.25 mg PO Q6HPRN PRN (Reason: anxiety)
citalopram 20 MG tablet
20 mg PO DAILY
furosemide 20 MG tablet
20 mg PO DAILY
levothyroxine 112 MCG tablet
112 mcg PO DAILY
famotidine 20 mg Tablet
20 mg PO DAILY
multivitamin [Daily-Mellissa] Tablet
1 tab PO DAILY
cyanocobalamin (vitamin B-12) 1,000 mcg Tablet Extended Release
1,000 mcg PO DAILY
acetaminophen [Tylenol] 325 mg Tablet
650 mg PO Q6H PRN (Reason: mild pain/temp)
clonazepam 0.5 mg Tablet
0.5 mg PO HS
methenamine hippurate 1 gram Tablet
1 g PO DAILY
buspirone 7.5 mg Tablet
7.5 mg PO TID
fluticasone propionate [Flonase Allergy Relief] 50 mcg/actuation [place],Suspension
1 spray INTRANASAL DAILY
cholecalciferol (vitamin D3) 125 mcg (5,000 unit) Tablet
250 mcg PO SUMOWETHFRSA
Discharge Orders:
Discharge Patient (As Directed); Ordered 05/04/24
Ordered By: Nelson Burrell
Discharge Date and Time
Discharge Date/Time: 05/04/24 16:21
Print Language: MALIAN
--- NOTE | 2024-05-04 12:24 | CM ---
Addendum entered by Margot Campos 05/04/24 12:50:
Ambulance transport arranged for 4-4:30 pick and shovel man to return to [facility] in [place]. Lanny Szymanski at [facility] aware of plan for return.
Original Note:
Elsy is ready for discharge today back to [facility] in [place], [place]. Daughter advised that they have signed hospice paperwork for start of care on Thursday05/09/2024 at [facility].
Ambulance transport arranged for discharge today; pt not safe to transport via car or w/c van. [facility]
Report: [phone]
[2024-05-04] MEDS: OMNICEF 300 MG PO (12:58)
[2024-05-04 13:38] VITALS: BP 95/53
== END 2024-05-04 16:21 | disposition other institution (70) | DRG 689 ==
LOC: 4 EAST ACU 08:51
PROVIDERS: Student in an Organized Health Care Education/Training Program; ADMITTING PHYSICIAN Internal Medicine; ATTENDING PHYSICIAN Internal Medicine; EMERGENCY PHYSICIAN Student in an Organized Health Care Education/Training Program; FAMILY PHYSICIAN Internal Medicine
DX: N39.0 Urinary tract infection, site not specified (principal); G92.8 Other toxic encephalopathy; N17.9 Acute kidney failure, unspecified; F03.918 Unspecified dementia, unspecified severity, with other behavioral disturbance; R64 Cachexia; N18.30 Chronic kidney disease, stage 3 unspecified
CPT/HCPCS: 70450; 80053; 81003; 81015; 82550; 82607; 82746; 83735; 83880; 84443; 85025; 87070; 87077; 87086; 87186; 93005; 96374; 97163; 97530; 99285

== ENCOUNTER 2024-06-30 17:00 | Emergency (ER) | payer MEDICARE, SELFPAY ==
[2024-06-30 17:01] VITALS: BP 137/66
[2024-06-30 17:25] LABS: % Basophils 0.8 % (0-2); % Immature Granulocytes 0.3 % (0-0.5); % Lymphocytes 32.6 % (20.5-51.1); % Monocytes 8.5 % (1.7-9.3); % Neutrophils 53.8 % (42.2-75.2); Absolute Basophils 0.1 10^3/uL (0-0.2); Absolute Eosinophils 0.3 10^3/uL (0-0.7); Absolute Lymphocytes 2.1 10^3/uL (1.2-3.4); Absolute Monocytes 0.6 10^3/uL (0.1-0.6); Absolute Neutrophils 3.5 10^3/uL (1.4-6.5); Hematocrit 33.5 % (37.0-47.0); Hemoglobin 10.8 g/dL (12.0-16.0); Mean Corp Hgb Conc. 32.2 g/dL (33.0-37.0); Mean Corpuscular Hgb 30.9 pg (27.0-31.0); Mean Corpuscular Volume 95.7 fL (81.0-99.0); Mean Platelet Volume 10.4 fL (7.4-10.4); Nucleated Red Blood Cells % 0 %; Platelet Count 276 10^3/uL (130-400); Red Cell Dist. Width 13.2 % (11.5-14.5); White Blood Cell Count 6.5 10^3/uL (4.8-10.8)
[2024-06-30 17:30] LABS: Urine Albumin Negative (Neg - Trace); Urine Bilirubin Negative (Negative); Urine Character Clear (Clear); Urine Color Yellow; Urine Glucose Negative (Negative); Urine Ketone Negative (Negative); Urine Leukocyte 2+ (Negative); Urine Nitrite Positive (Negative); Urine Occult Blood Negative (Negative); Urine Urobilinogen Negative (Neg - 1+); Urine pH 6.5 (5.0-9.0)
[2024-06-30 17:49] LABS: Blood Urea Nitrogen 40 mg/dl (7-17); Calcium 9.7 mg/dl (8.4-10.2); Carbon Dioxide 29 mmol/L (22-30); Chloride 105 mmol/L (98-107); Glucose 157 mg/dl (70-99); Sodium 144 mmol/L (135-145); eGFR 31.02
[2024-06-30 18:00] VITALS: BP 104/65
[2024-06-30 18:13] LABS: Urine Bacteria Many (Negative); Urine White Cell 16-20 /HPF (0-5)
[2024-06-30 19:00] VITALS: BP 124/73
[2024-06-30] MEDS: NSS 1000 IV (19:57)
[2024-06-30] MEDS: OMNICEF 300 MG PO (19:57)
[2024-06-30 21:42] VITALS: BP 151/67
--- NOTE | 2024-06-30 23:18 | ED.GENMED ---
Addendum entered and electronically signed by Clifford Rosenbaum PA-C 07/04/24 07:38:
UCx with 2 strains of E coli; cefdinir appropriate therapy x 2.
Original Note:
History of Present Illness
General
Chief Complaint: Change in Mental Status
Source: family and [facility]
Exam Limitations: none
Time Seen by Provider: 06/30/24 18:55
Nursing documentation reviewed up to this point in time: agreed with
History of Present Illness
History of Present Illness:
Patient to ED for eval of increased confusion. According to family she usually presents like this when she has a Uti. Brought to ED via EMS for eval. Hospice patient.
Past History
Past History
ED Past Medical History: Asthma, Hypercholesterolemia, Hypothyroidism, Psychiatric (anxiety/depression), Other (Pancreatic lesion) and Other
ED Past Surgical History: Gynecological (Hysterectomy) and Orthopedic (Left total knee)
Patient has exhibited threatening behavior?: No
PSI?: No
Social History
Tobacco: Former smoker
Alcohol: None
Drug: None
Personal:
Living: assisted living
Family History
Family History: Other (Mother with stroke father with angina and Alzheimer's)
Review of Systems
Review of Systems
Allergies reviewed?: Yes
All Other Systems: ROS reviewed and negative except as documented in HPI and ROS
Constitutional: Reports no symptoms
EENT: Reports no symptoms
Respiratory: Reports no symptoms
Cardiac: Reports no symptoms
ABD/GI: Reports no symptoms
: Reports no symptoms
Musculoskeletal: Reports no symptoms
Skin: Reports no symptoms
Neurological: Reports other (increased confusion)
Psychiatric: Reports no symptoms
Phy Exam
General Physical Exam
General Presentation: well appearing and no apparent distress
General age: appears stated age
General Skin: warm and dry
General Habitus: normal
General Mental: usual mental status
Cardiovascular Exam
Cardiovascular Exam: regular rate/rhythm and no edema
Pulmonary Exam
Pulmonary Exam: lungs clear and no respiratory distress
Gastrointestinal Exam
Gastrointestinal Exam: normal bowel sounds, non tender, soft and no organomegaly
Musculoskeletal Exam
Musculoskeletal Exam: full ROM and neuro vasc intact
Skin Exam
Skin Exam: normal color, warm/dry and no rash
Psychiatric Exam
Psychiatric Exam: normal mood/affect
Course
Orders/Labs/Results
Orders:
Orders
06/30/24 17:14
Basic Metabolic Panel Urgent
Complete Blood Count/With Diff Urgent
Urinalysis Reflex To Culture Urgent
Date Specimen was Collected: 06/30/24
Time Specimen was Collected: 17:09
Urine Microscopic Reflex Cult Urgent
Urine Culture Urgent
SURYA Source: U
Specimen Description:
Date Specimen was Collected: 06/30/24
Time Specimen was Collected: 17:09
06/30/24 19:37
0.9% Sodium Chloride 1000 ml [Nss] 1,000 ml IV BOLUS
Cefdinir [Omnicef] 300 mg PO NOW STA
Abnormal Lab Results
06/30/24
17:14
RBC 3.50 L 10^6/uL
(4.20-5.40)
Hgb 10.8 L g/dL
(12.0-16.0)
Hct 33.5 L %
(37.0-47.0)
MCHC 32.2 L g/dL
(33.0-37.0)
BUN 40 H mg/dl
(7-17)
Creatinine 1.6 H mg/dL
(0.6-1.0)
Glucose 157 H mg/dl
(70-99)
Urine Nitrite (Reflex) Positive A
(Negative)
Leukocyte Esterase Rfl 2+ A
(Negative)
Urine RBC 7-10 A /HPF
(0-2)
Urine WBC (Reflex) 16-20 A /HPF
(0-5)
Urine Bacteria (Reflex) Many A
(Negative)
06/30/24 17:14
06/30/24 17:14
Vital Signs
Initial and Last Documented VS:
Initial Vital Signs
Temp Pulse Resp BP Pulse Ox
98.1 F 72 14 137/66 98
06/30/24 17:01 06/30/24 17:01 06/30/24 17:01 06/30/24 17:01 06/30/24 17:01
Last Documented Vital Signs
Temp Pulse Resp BP Pulse Ox
98.1 F 77 17 151/67 100
06/30/24 17:01 06/30/24 21:42 06/30/24 21:42 06/30/24 21:42 06/30/24 21:51
*Critical Care Note
Total Time (30-74mins, 75-104mins- exclusive of procedures): Not Applicable
Update Note
Update Note:
Labs reviewed. +UTI. Cefdinir started in dept. No evidence of sepsis. Patient is hospice. Son would prefer not to proceed with head Ct, feels symptoms are explained with UTI. IVF given in dept. WIll discharge home. Given instrutions on s/s to
return to ED and family is agreeable to plan.
ED Attending Note
-
Portions of this chart may have been created with voice recognition software.� Occasional wrong word or��sound alike� substitutions may have occurred due to the inherent limitations of voice recognition software.
Discharge Plan
Departure
Patient Disposition: Home (Routine Discharge)
Date of Disposition: 06/30/24
Time of Disposition: 21:08
Patient with high blood pressure during this ER visit?: No
Condition: Good
Covid-19: Not Applicable
Discharge Problem:
Urinary tract infection
Instructions: Urinary Tract Infection, Adult (DC)
Prescriptions:
New
cefdinir 300 mg capsule
300 mg PO BID Qty: 14 0RF
No Action
clonazepam 0.5 MG tablet
0.25 mg PO Q6HPRN PRN (Reason: anxiety)
citalopram 20 MG tablet
20 mg PO DAILY
furosemide 20 MG tablet
20 mg PO DAILY
levothyroxine 112 MCG tablet
112 mcg PO DAILY
famotidine 20 mg Tablet
20 mg PO DAILY
multivitamin [Daily-Mellissa] Tablet
1 tab PO DAILY
cyanocobalamin (vitamin B-12) 1,000 mcg Tablet Extended Release
1,000 mcg PO DAILY
acetaminophen [Tylenol] 325 mg Tablet
650 mg PO Q6H PRN (Reason: mild pain/temp)
clonazepam 0.5 mg Tablet
0.5 mg PO HS
methenamine hippurate 1 gram Tablet
1 g PO DAILY
buspirone 7.5 mg Tablet
7.5 mg PO TID
fluticasone propionate [Flonase Allergy Relief] 50 mcg/actuation [place],Suspension
1 spray INTRANASAL DAILY
cholecalciferol (vitamin D3) 125 mcg (5,000 unit) Tablet
250 mcg PO SUMOWETHFRSA
aspirin 81 mg Tablet,Chewable
81 mg PO DAILY Qty: 0 0RF
cefdinir 300 mg Capsule
300 mg PO Q12 Qty: 6 0RF
Referrals:
Lo Tamayo MD [Family Provider] - Follow up in 2-3 days
Interventions
Interventions:
*Risk Screen - Suicide Last Done: 06/30/24 17:01
*General Assessment Last Done: 06/30/24 17:01
*Neglect/Abuse Screening Last Done: 06/30/24 17:01
ED- Fall Risk Assessment Last Done: 06/30/24 22:44
*ED COVID-19 Vaccine History Last Done: 06/30/24 20:21
*Nursing Disposition Last Done: 06/30/24 22:44
ED- Pulmonary Assessment Last Done: 06/30/24 22:44
ED-Psychological Assessment Last Done: 06/30/24 22:44
ED- Neurological Assessment Last Done: 06/30/24 17:49
ED-Female Genitourinary Assessment Last Done: 06/30/24 17:49
ED- Cardiac Assessment Last Done: 06/30/24 22:44
ED Swallowing Screen Last Done: 06/30/24 19:55
Discharge Date and Time
Discharge Date/Time: 06/30/24 22:45
Print Language: MACEDONIAN
== END 2024-06-30 22:45 | disposition home or self-care (01) ==
LOC: EMR 17:00
PROVIDERS: EMERGENCY PHYSICIAN Emergency Medicine; FAMILY PHYSICIAN Internal Medicine
DX: N39.0 Urinary tract infection, site not specified (principal); Z87.891 Personal history of nicotine dependence
CPT/HCPCS: 99284; 96360; 80048; 81003; 81015; 85025; 87077; 87086; 87186

== ENCOUNTER 2024-07-22 21:14 | Emergency (ER) | payer MEDICARE, SELFPAY ==
[2024-07-22 21:19] VITALS: BP 127/72
[2024-07-22 21:37] LABS: % Basophils 0.7 % (0-2); % Eosinophils 1.9 % (0-6); % Immature Granulocytes 0.1 % (0-0.5); % Lymphocytes 38.8 % (20.5-51.1); % Monocytes 10.9 % (1.7-9.3); % Neutrophils 47.6 % (42.2-75.2); Absolute Basophils 0.1 10^3/uL (0-0.2); Absolute Eosinophils 0.1 10^3/uL (0-0.7); Absolute Lymphocytes 2.6 10^3/uL (1.2-3.4); Absolute Monocytes 0.7 10^3/uL (0.1-0.6); Absolute Neutrophils 3.2 10^3/uL (1.4-6.5); Hematocrit 33.1 % (37.0-47.0); Hemoglobin 11.4 g/dL (12.0-16.0); Mean Corp Hgb Conc. 34.4 g/dL (33.0-37.0); Mean Corpuscular Hgb 30.4 pg (27.0-31.0); Mean Corpuscular Volume 88.3 fL (81.0-99.0); Mean Platelet Volume 10.3 fL (7.4-10.4); Nucleated Red Blood Cells % 0 %; Platelet Count 257 10^3/uL (130-400); Red Blood Cell Count 3.75 10^6/uL (4.20-5.40); Red Cell Dist. Width 13.1 % (11.5-14.5); White Blood Cell Count 6.8 10^3/uL (4.8-10.8)
[2024-07-22 22:00] VITALS: BP 123/69
[2024-07-22 22:41] LABS: ALT (SGPT) 13 U/L (0-35); AST (SGOT) 20 U/L (14-36); Albumin 3.7 g/dl (3.5-5.0); Alkaline Phosphatase 63 U/L (38-126); Blood Urea Nitrogen 45 mg/dl (7-17); Carbon Dioxide 27 mmol/L (22-30); Chloride 104 mmol/L (98-107); Glucose 104 mg/dl (70-99); Lipase 91 U/L (23-300); Potassium 3.8 mmol/L (3.5-5.1); Sodium 141 mmol/L (135-145); Total Bilirubin 0.6 mg/dl (0.2-1.3); Total Protein 5.8 g/dl (6.3-8.2); eGFR 23.73
[2024-07-22 23:00] VITALS: BP 114/66
--- NOTE | 2024-07-22 23:29 | ED.GENMED ---
History of Present Illness
General
Chief Complaint: Abdominal Pain
Time Seen by Provider: 07/22/24 22:08
History of Present Illness
History of Present Illness:
88-year-old female with history of dementia, anxiety, and hospice patient presenting to the emergency department for concern of upper abdominal pain. Patient presents from her nursing facility for concern of upper abdominal pain. Patient unable to
give any additional history given her profound dementia.
Past History
Past History
ED Past Medical History: Asthma, Hypercholesterolemia, Hypothyroidism, Psychiatric (anxiety/depression), Other (Pancreatic lesion) and Other
ED Past Surgical History: Gynecological (Hysterectomy) and Orthopedic (Left total knee)
Patient has exhibited threatening behavior?: No
PSI?: No
Social History
Tobacco: Former smoker
Alcohol: None
Drug: None
Personal:
Living: assisted living
Family History
Family History: Other (Mother with stroke father with angina and Alzheimer's)
Phy Exam
Physical Exam
Physical Exam:
General: Well-appearing, no clinical signs of dehydration, nontoxic and in no acute distress
HEENT: protecting airway
Neck: appears supple
CV: Normal heart rate, regular rhythm
Resp: No accessory muscle use, no increased work of breathing, lungs clear to auscultation bilaterally
Abd: Soft and non-distended, no tenderness to palpation, no rebound or guarding
Extremities: No deformities, no swelling
Neuro: alert, moving all extremities appropriately, not oriented
: deferred
Rectal: deferred
Psych: Normal affect
Skin: Intact
Course
Orders/Labs/Results
Orders:
Orders
07/22/24 21:30
Complete Blood Count/With Diff Urgent
07/22/24 21:56
Comprehensive Metabolic Panel Urgent
Lipase Urgent
07/23/24 00:01
CT Abd/pel Without Iv Or Oral Urgent
Reason For Exam: reported upper abdominal pain
Abnormal Lab Results
07/22/24 07/22/24
21:30 21:56
RBC 3.75 L 10^6/uL
(4.20-5.40)
Hgb 11.4 L g/dL
(12.0-16.0)
Hct 33.1 L %
(37.0-47.0)
Absolute Monos (auto) 0.7 H 10^3/uL
(0.1-0.6)
Monocytes % 10.9 H %
(1.7-9.3)
BUN 45 H mg/dl
(7-17)
Creatinine 2.0 H mg/dL
(0.6-1.0)
Glucose 104 H mg/dl
(70-99)
Total Protein 5.8 L g/dl
(6.3-8.2)
07/22/24 21:30
07/22/24 21:56
Vital Signs
Initial and Last Documented VS:
Initial Vital Signs
Temp Pulse Resp BP Pulse Ox
98.3 F 79 22 127/72 95
07/22/24 21:19 07/22/24 21:19 07/22/24 21:19 07/22/24 21:19 07/22/24 21:19
Last Documented Vital Signs
Temp Pulse Resp BP Pulse Ox
98.3 F 72 16 123/69 95
07/22/24 21:19 07/22/24 22:15 07/22/24 22:15 07/22/24 22:00 07/22/24 21:19
MDM/Problems Addressed
MDM/Problems Addressed:
88-year-old female with history of dementia and anxiety presenting to the emergency department for alleged upper abdominal pain from nursing facility. Vital signs on arrival are normal.
On exam, patient is well-appearing, resting comfortably, no acute distress. Overall benign examination without specific tenderness to the abdomen, soft and nondistended. Unclear preceding events at the nursing facility. Given the patient is
unable to provide any history due to profound dementia, will err on side of caution and obtain laboratory analysis and CT imaging to ensure no acute process. Will continue to closely monitor.
23:00- Labs unremarkable, no leukocytosis. Patient does have elevated BUN and creatinine, however appears to be at baseline.
01:00 -CT without acute process. Patient otherwise remains hemodynamically stable. At this time feel that she is stable for discharge with discharge back to her facility. Return precautions discussed
*Critical Care Note
Total Time (30-74mins, 75-104mins- exclusive of procedures): Not Applicable
ED Attending Note
-
Portions of this chart may have been created with voice recognition software.� Occasional wrong word or��sound alike� substitutions may have occurred due to the inherent limitations of voice recognition software.
Discharge Plan
Departure
Prescriptions:
No Action
clonazepam 0.5 MG tablet
0.25 mg PO Q6HPRN PRN (Reason: anxiety)
citalopram 20 MG tablet
20 mg PO DAILY
furosemide 20 MG tablet
20 mg PO DAILY
levothyroxine 112 MCG tablet
112 mcg PO DAILY
famotidine 20 mg Tablet
20 mg PO DAILY
multivitamin [Daily-Mellissa] Tablet
1 tab PO DAILY
cyanocobalamin (vitamin B-12) 1,000 mcg Tablet Extended Release
1,000 mcg PO DAILY
acetaminophen [Tylenol] 325 mg Tablet
650 mg PO Q6H PRN (Reason: mild pain/temp)
clonazepam 0.5 mg Tablet
0.5 mg PO HS
methenamine hippurate 1 gram Tablet
1 g PO DAILY
buspirone 7.5 mg Tablet
7.5 mg PO TID
fluticasone propionate [Flonase Allergy Relief] 50 mcg/actuation [place],Suspension
1 spray INTRANASAL DAILY
cholecalciferol (vitamin D3) 125 mcg (5,000 unit) Tablet
250 mcg PO SUMOWETHFRSA
aspirin 81 mg Tablet,Chewable
81 mg PO DAILY Qty: 0 0RF
cefdinir 300 mg Capsule
300 mg PO Q12 Qty: 6 0RF
cefdinir 300 mg capsule
300 mg PO BID Qty: 14 0RF
Referrals:
Lo Tamayo MD [Family Provider] -
Interventions
Interventions:
*Risk Screen - Suicide Last Done: 07/22/24 21:19
*General Assessment Last Done: 07/22/24 21:19
*Neglect/Abuse Screening Last Done: 07/22/24 21:19
ED- Fall Risk Assessment Last Done: 07/22/24 21:19
*ED COVID-19 Vaccine History Last Done: 07/22/24 21:19
SS-Kyyxno-Vrprynjnyr Assessment Last Done: 07/22/24 21:23
Discharge Date and Time
Print Language: GREEK
[2024-07-23] VITALS: BP 111/60
[2024-07-23 01:00] VITALS: BP 114/65
[2024-07-23 02:00] VITALS: BP 104/75
== END 2024-07-23 06:22 | disposition home or self-care (01) ==
LOC: EMR 21:14
PROVIDERS: Emergency Medicine; EMERGENCY PHYSICIAN Student in an Organized Health Care Education/Training Program; FAMILY PHYSICIAN Internal Medicine
DX: R10.12 Left upper quadrant pain (principal); F03.93 Unspecified dementia, unspecified severity, with mood disturbance; F03.94 Unspecified dementia, unspecified severity, with anxiety; F32.A Depression, unspecified; J45.909 Unspecified asthma, uncomplicated; E78.00 Pure hypercholesterolemia, unspecified; E03.9 Hypothyroidism, unspecified; Z82.3 Family history of stroke; Z87.891 Personal history of nicotine dependence
CPT/HCPCS: 99284; 74176; 80053; 83690; 85025